=== PATIENT | female | born 1995 | race Caucasian/White ===

== ENCOUNTER → 2020-04-11 10:45 | Outpatient (REF) | payer OTHER, SELFPAY | LOC: ANHLAB 10:45 | PROVIDERS: PCP Family Medicine; Visit Provider Nurse Practitioner | DX: D49.2 Neoplasm of unspecified behavior of bone, soft tissue, and skin (principal); L57.0 Actinic keratosis | CPT/HCPCS: 88305 ==

== ENCOUNTER 2023-02-21 21:46 | Emergency (ER) | payer OTHER, SELFPAY ==
[2023-02-21] VITALS (11 sets, daily range): BP systolic 121–132; BP diastolic 81–84; PULSE 82–103; RESP 12–19; TEMP 37; O2SAT 99–100
--- NOTE | 2023-02-21 21:56 | ED.SYNCOPE ---
HPI - Syncope General Chief Complaint: Syncope <Marilu Otto APRN - Last Filed: 02/22/23 02:58> Stated Complaint: HEADACHE, CHEST PAIN <Marilu Otto APRN - Last Filed: 02/22/23 02:58> Time Seen by Provider: 02/21/23 21:56 <Marilu Otto APRN - Last Filed: 02/22/23 02:58> Source: patient and EMS <Marilu Otto APRN - Last Filed: 02/22/23 02:58> Mode of arrival: EMS <Marilu Otto APRN - Last Filed: 02/22/23 02:58> Limitations: no limitations <Marilu Otto APRN Last Filed: 02/22/23 02:58> History of Present Illness HPI narrative: Patient is a pleasant 28 year female with past medical history of anxiety, ADD, bipolar disorder who presents emergency department today via EMS for evaluation multiple concerns. Patient states that she had a syncopal like episode however she was hyperventilating, had a panic attack very anxious and upset. She states that it was a birthday today and she went out with her boyfriend and did have a redbull and vodka and did not really eat anything. She states that she is not anorexic but she does not eat a lot. she states that her boyfriend was calling her crazy and she got very upset during there argument. She states that she currently has a headache. She states that she did not hit her head. Currently the only symptom she is having is feeling upset as well as a headache. She denies any recent illness. Denies fever, chills, nausea vomiting, numbness or tingling of lower extremities, neck pain, visual disturbances, current chest pain, shortness a breath, or any other symptoms. Denies any chance of . She vapes daily and smokes marijuana denies any other drug use. denies suicidal or homicidal ideations. she does feel safe at home and does not get physically abused. she feels safe going home and will have somewhere to go. <Marilu Otto APRN - Last Filed: 02/22/23 02:58> Related Data Allergies/Adverse Reactions: Allergies Allergy/AdvReac Type Severity Reaction Status Date / Time No Known Allergies Allergy Verified 12/24/21 13:59 <Marilu Otto APRN - Last Filed: 02/22/23 02:58> Review of Systems Review of Systems: CONSTITUTIONAL: Denies fever, chills, or sweats. EYES: Denies visual changes, redness, or discharge. ENT: Denies rhinorrhea, congestion, sore throat, or otalgia. CARDIOVASCULAR: Denies palpitations, edema. +chest discomfort-more breathing related RESPIRATORY: Denies cough or dyspnea. GASTROINTESTINAL: Denies abdominal pain, nausea, vomiting, or diarrhea. GENITOURINARY: Denies dysuria or hematuria. SKIN: Denies rash or itching. MUSCULOSKELETAL: Denies back pain, joint pain, or myalgia. NEUROLOGIC: Denies numbness, or weakness. +headache/lightheaded + passing out. PSYCHIATRIC: denies depression. +anxiety, panic attack stress. Denies suicidal/homicidal ideation. denies hallucinations. <Marilu Otto APRN - Last Filed: 02/22/23 02:58> All systems reviewed & are unremarkable except as noted in HPI and below <Marilu Otto APRN - Last Filed: 02/22/23 02:58> [facility] Past Medical History Medical History: Medical History ADD (attention deficit disorder) without hyperactivity Bipolar 1 disorder Micromastia Skin laxity Tobacco use Umbilical hernia <Marilu Otto APRN - Last Filed: 02/22/23 02:58> Surgical History Surgical History: Surgical History History of augmentation mammoplasty <Marilu Otto APRN - Last Filed: 02/22/23 02:58> Family History Family History: Family History Grandparent Family history of malignant neoplasm of breast Father Hypertension Patient's father is in good health Family history of elevated blood lipids Mother Patient's mother is in good health <Marilu Otto, MALATHI - Last Filed: 02/22/23 02:58
--- NOTE | 2023-02-21 21:57 | ECG_ITS ---
Measurements Intervals [place] Rate: 78 P: 18 KS: 153 QRS: 50 QRSD: 85 T: 50 QT: 365 QTc: 418 Interpretive Statements SINUS RHYTHM NO PREVIOUS ECG AVAILABLE FOR COMPARISON Electronically Signed On 02-22-2023 8:59:47 CDT by Mine Rolon M.D.
[2023-02-21] MEDS: KETOROLAC 30 MG/ML VIAL (*BKC) IV PUSH (22:06)
[2023-02-21] MEDS: SODIUM CHLORIDE 0.9% IV 1,000 ML 999 ML IV CONT (22:06)
[2023-02-21 22:26] LABS: Basophils Absolute Auto 0.1 K/mm3 (0.0-0.1); Basophils Percent Auto 0.6 % (0.2-1.2); Eosinophils Absolute Auto 0.2 K/mm3 (0-0.3); Eosinophils Percent Auto 1.7 % (0-4.4); Hematocrit 39.8 % (37.0-47.0); Hemoglobin 13.7 g/dL (12.0-15.0); Immature Granulocyte Absolute 0.06 K/mm3 (0.00-0.031); Immature Granulocyte Percent A 0.4 % (0-0.5); Lymphocytes Absolute Auto 3.31 K/mm3 (0.9-3.2); Lymphocytes Percent Auto 23.1 % (18.3-44.2); Mean Corpuscular HGB Conc 34.4 g/dl (32-36); Mean Corpuscular Hemoglobin 32.2 pg (26-34); Mean Corpuscular Volume 93.4 fl (80-100); Mean Platelet Volume 9.5 fl (7.4-10.4); Monocytes Absolute Auto 1.4 K/mm3 (0.1-0.6); Monocytes Percent Auto 9.4 % (2.6-8.5); Neutrophils Absolute Auto 9.3 K/mm3 (1.3-6.7); Neutrophils Percent Auto 64.8 % (45.5-73.1); Platelet Count Result 201 k/mm3 (150-375); Red Blood Count 4.26 M/mm3 (4.2-5.4); Red Cell Distribution Width 12.9 % (11.5-14.5); White Blood Count 14.3 K/mm3 (4.5-10.0)
[2023-02-21 22:40] LABS: Ethanol < 10 mg/dL (<10)
[2023-02-21 22:41] LABS: Alanine Aminotransferase 22 U/L (6-35); Alkaline Phosphatase 51 U/L (38-126); Anion Gap 5 mmol/L (8-16); Aspartate Amino Transferase 27 U/L (14-36); Bilirubin,Total 0.6 mg/dL (0.2-1.3); Blood Urea Nitrogen 17 mg/dL (7-17); Calcium 8.6 mg/dL (8.4-10.2); Carbon Dioxide 25 mmol/L (22-30); Chloride 104 mmol/L (98-107); Estimated CRCL calculation 95 ml/min; Estimated Glomerular Filt Rate > 60; Glucose 93 mg/dL (65-110); Potassium 3.6 mmol/L (3.4-5.0); Sodium 134 mmol/L (137-145)
[2023-02-21 22:52] LABS: Troponin I < 0.012 ng/mL (0.000-0.034)
[2023-02-21 22:58] LABS: Bacteria Urine 1+ /hpf; Non Pathogenic Casts 0-2; RBC Urine 0-2 /hpf (0-2); Squamous Epithelial Cell Urine Many /hpf (Few); WBC Urine 0-5 /hpf
[2023-02-21 23:01] LABS: Appearance Urine Cloudy (Clear); Bilirubin Urine 1+ (Negative); Blood Urine Negative (Negative); Color Urine Dark Yellow (Yellow); Glucose Urine UA Negative (Negative); Ketones Urine 1+ mg/dL (Negative); Leukocyte Esterase Ur Trace LEU/UL (Negative); Nitrate Urine Negative (Negative); Protein Urine Trace mg/dL (Negative); Specific Grav Ur 1.023 (1.001-1.035)
[2023-02-21 23:21] LABS: Add Urine Microscopic? YES
--- NOTE | 2023-02-21 23:37 | PC.NURSE ---
Patient states she feels better and is ready to go home. ERP notified.
--- NOTE | 2023-02-21 23:40 | PC.NURSE ---
Patient states she wants to leave. ERP and this RN went to speak with patient. Patient states she feels better and denies any pain. Patient denies any SI/HI. Patient asked if she has a safe place to go tonight and if she feels safe leaving here with family or friends. Patient states she does have a safe place to go, and has family and loved ones here to take her home.
[2023-02-21 23:42] LABS: Barbiturate Screen Urine Negative (Negative); Benzodiazepines Screen Urine Negative (Negative)
[2023-02-22] LABS: Cannabinoid Screen Urine Positive (Negative); Cocaine Screen Urine Negative (Negative); Methadone Screen Urine Negative (Negative); Opiate Screen Urine Negative (Negative); Phencyclidine Screen Urine Negative (Negative)
[2023-02-22 00:15] LABS: Amphetamine Screen Urine Positive (Negative)
== END 2023-02-22 00:07 | disposition home or self-care (01) ==
PROVIDERS: Emergency Provider Nurse Practitioner; PCP Internal Medicine
DX: F41.9 Anxiety disorder, unspecified (principal); F43.9 Reaction to severe stress, unspecified; F17.290 Nicotine dependence, other tobacco product, uncomplicated
CPT/HCPCS: 36415; 80053; 80307; 81001; 81025; 84484; 85025; 93005; 96361; 96374; 99284; J1885; J7030